=== PATIENT | female | born 1935 | race Caucasian/White ===

== ENCOUNTER → 2020-12-01 | Outpatient (CLI) | payer MEDICARE ==
[~2020-12-01] MED LIST: OMNICEF 300 MG300 MG PO; ZOFRAN ODT 4 MG4 MG PO
== END ==
LOC: CT 07:07
DX: R10.13 Epigastric pain (principal); R91.8 Other nonspecific abnormal finding of lung field; R93.3 Abnormal findings on diagnostic imaging of other parts of digestive tract
CPT/HCPCS: 36415; 74160; 82565; 84520; Q9967

== ENCOUNTER → 2020-12-28 | Outpatient (CLI) | payer MEDICARE | LOC: KOH-I 08:21 | DX: R10.11 Right upper quadrant pain (principal); K80.20 Calculus of gallbladder without cholecystitis without obstruction; K82.8 Other specified diseases of gallbladder | CPT/HCPCS: 76705 ==

== ENCOUNTER 2021-04-13 13:05 | Observation (INO) | payer MEDICARE ==
[~2021-04-13] VITALS: Ht 162.6 cm; Wt 64.0 kg
[2021-04-13 13:28] LABS: HEMOGLOBIN 14.2 gm/dl (12.3-15.3); RED BLOOD COUNT 4.63 M/UL (4.00-5.10); WHITE BLOOD COUNT 10.1 K/UL (4.5-11.0)
[2021-04-13 13:43] LABS: BUN/CREATININE RATIO 29 (0-10)
[2021-04-13] MEDS ORDERED: ACID CONTROLLER20 MG PO (20:20)
[2021-04-13] MEDS ORDERED: COZAAR50 MG PO (22:06)
[2021-04-13] MEDS ORDERED: CELEBREX 200MG200 MG PO (22:07)
[2021-04-13] MEDS ORDERED: SYNTHROID75 MCG PO (22:08)
[2021-04-13] MEDS ORDERED: OMEPRAZOLE MAGN20 MG PO (22:08)
[2021-04-14 06:41] LABS: HEMOGLOBIN 13.8 gm/dl (12.3-15.3); RED BLOOD COUNT 4.5 M/UL (4.00-5.10)
[2021-04-14 06:46] LABS: WHITE BLOOD COUNT 6.5 K/UL (4.5-11.0)
[2021-04-14 07:17] LABS: BUN/CREATININE RATIO 21 (0-10)
[2021-04-14] MEDS ORDERED: ZOFRAN ODT 4 MG4 MG PO (10:59)
[2021-04-14] MEDS ORDERED: HYDROCODON-ACE1 EAC4 PO (10:59)
[2021-04-19] MEDS ORDERED: VITAMIN D3125 MCG PO (06:45)
[2021-04-19] MEDS ORDERED: VITAMIN B-122500 MCG PO (06:47)
[2021-04-19] MEDS ORDERED: COLACE100 MG PO (10:48)
[2021-04-19] MEDS ORDERED: HYDROCODON-ACE1 EAC4 PO (10:48)
== END 2021-04-14 12:02 | disposition home or self-care (01) ==
LOC: ER1 13:05 → CDU 17:43 → MED SURG 4 19:16
PROVIDERS: Student in an Organized Health Care Education/Training Program; ADMIT Internal Medicine
DX: K80.64 Calculus of gallbladder and bile duct with chronic cholecystitis without obstruction (principal); R55 Syncope and collapse; E86.0 Dehydration; E87.1 Hypo-osmolality and hyponatremia; I10 Essential (primary) hypertension; E89.0 Postprocedural hypothyroidism; M19.90 Unspecified osteoarthritis, unspecified site; Z20.822 Contact with and (suspected) exposure to COVID-19; Z90.5 Acquired absence of kidney
CPT/HCPCS: 36415; 51701; 70450; 71045; 80053; 81001; 82550; 82553; 83036; 83690; 83735; 83874; 84439; 84443; 84484; 85025; 93005; 96372; 96374; 96376; 99285; G0378; J0295; J1650; Q9967; U0002

== ENCOUNTER → 2021-04-19 | Day surgery (SDC) | payer MEDICARE ==
[~2021-04-19] MED LIST changes: +ACID CONTROLLER20 MG PO; +CELEBREX 200MG200 MG PO; +COLACE100 MG PO; +COZAAR50 MG PO; +HYDROCODON-ACE1 EAC4 PO; +OMEPRAZOLE MAGN20 MG PO; +SYNTHROID75 MCG PO; +VITAMIN B-122500 MCG PO; +VITAMIN D3125 MCG PO
== END | disposition home or self-care (01) ==
LOC: OR 06:15
PROVIDERS: Surgery
PROC: BF131ZZ Fluoroscopy of Gallbladder and Bile Ducts using Low Osmolar Contrast (ICD-10-PCS; 2021-04-19)
PROC: BF151ZZ Fluoroscopy of Liver using Low Osmolar Contrast (ICD-10-PCS; 2021-04-19)
PROC: 0FT44ZZ Resection of Gallbladder, Percutaneous Endoscopic Approach (ICD-10-PCS; principal; 2021-04-19 08:30)
DX: K80.66 Calculus of gallbladder and bile duct with acute and chronic cholecystitis without obstruction (principal); K66.0 Peritoneal adhesions (postprocedural) (postinfection); K82.8 Other specified diseases of gallbladder; K21.9 Gastro-esophageal reflux disease without esophagitis; K52.9 Noninfective gastroenteritis and colitis, unspecified; I12.9 Hypertensive chronic kidney disease with stage 1 through stage 4 chronic kidney disease, or unspecified chronic kidney disease; N18.30 Chronic kidney disease, stage 3 unspecified; E78.5 Hyperlipidemia, unspecified; E89.0 Postprocedural hypothyroidism; M19.90 Unspecified osteoarthritis, unspecified site; E55.9 Vitamin D deficiency, unspecified; Z20.822 Contact with and (suspected) exposure to COVID-19; Z79.899 Other long term (current) drug therapy; Z98.890 Other specified postprocedural states; Z86.73 Personal history of transient ischemic attack (TIA), and cerebral infarction without residual deficits; Z90.5 Acquired absence of kidney; Z87.19 Personal history of other diseases of the digestive system
CPT/HCPCS: C1729; J0690; J1100; J2001; J2370; J2405; J2704; J2710; J3010; J7030; J7120; Q9967